=== PATIENT | male | born 1955 | race Caucasian/White ===

== ENCOUNTER 2016-09-21 16:02 | Emergency (ER) | payer OTHER ==
[~2016-09-21] VITALS: Wt 74.0 kg
--- NOTE | 2016-09-21 17:59 | ERD ---
ER Documentation Chief Complaint Date/Time DATE: 09/21/16 TIME: 17:58 Chief Complaint right hand laceration for the past few hours. bleeding controlled HPI This is a 61-year-old male presenting to the emergency room complaining of a a superficial laceration sustained on his right distal palm inferior to the second digit from a tape measure/ ROS All systems reviewed and are negative except as per history of present illness. PMhx/Soc History of Surgery: No Anesthesia Reaction: No Hx Neurological Disorder: No Hx Respiratory Disorders: No Hx Cardiac Disorders: No Hx Psychiatric Problems: No Hx Miscellaneous Medical Probl: Yes (GERD) Hx Alcohol Use: No Hx Substance Use: No Hx Tobacco Use: Yes Smoking Status: Current every day smoker Physical Exam Vitals Vital Signs Date Time Temp Pulse Resp B/P Pulse Ox O2 Delivery O2 Flow Rate FiO2 09/21/16 16:11 98.0 74 20 128/80 98 Physical Exam General: WD/WN, in no apparent distress, non-toxic appearing HENT: NC/AT Eyes: Conjunctiva normal Neck: Supple Pulm: Normal labored breathing CV: Good capillary refill GI: Non-distended, no guarding Back: No masses Ext: No clubbing, cyanosis, or edema Neuro: Moves on all fours, no neuro deficits, sensation intact Skin: 1.2 cm superficial laceration on the distal palm inferior to second digit , patient has full range of motion of the radial/ulnar/median nerve, 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 A second digit. My clinical suspicion for fracture, nerve/ tendon/arterial injury, foreign body is low due to physical examination. In the ED, patient was given TDAP and prepared for wound closure.hemodynamically stable and neurovascularly intact pre and post treatment. Discussed 2 day wound check. Discussed to return to this facility or primary care physician in 7 days for suture removal. Discussed to return to the ER for any signs of infection or if condition worsens. Patient expressed agreement and understanding of the plan. PROCEDURE NOTE: Consent was obtained. Patient was positioned appropriately. Copious amount of normal saline was used for irrigation. Wound was cleansed with Betadine. Approximately []cc of lidocaine with epinephrine was used as a local anesthetic. Patient was sterile draped with wound exposed. Wound was closed with good approximation with 3 x 4-0 sutures. Procedure tolerated without complications. Wound dressed with bacitracin and sterile gauze. Departure Diagnosis: Primary Impression: Hand laceration Encounter type: initial encounter Laterality: right Qualified Code: S61.411A - Hand laceration, right, initial encounter Condition: Stable Patient Instructions: Laceration, Hand Referrals: [facility] Additional Instructions: Follow up in 2 days in your clinic for wound check. Return to this facility if you are not improving as expected. GWEN WU PA-C Sep 21, 2016 17:59
[2016-09-21] MEDS ORDERED: LIDOCAINE 1%/EPI (MDV) 20 ML INJ INJ ONE (18:00)
[2016-09-21] MEDS ORDERED: DIPHTH/TET/ACEL PERTUSS (ADULT) 0.5 ML VIAL IM* ONE (18:00)
[2016-09-21] MEDS ORDERED: BACITRACIN 0.9 GM OINT TOP ONE (19:00)
== END 2016-09-21 19:07 | disposition home or self-care (01) ==
LOC: FTE 16:02
DX: S61.411A Laceration without foreign body of right hand, initial encounter (principal); F17.210 Nicotine dependence, cigarettes, uncomplicated; X58.XXXA Exposure to other specified factors, initial encounter; Y92.9 Unspecified place or not applicable
CPT/HCPCS: 90471; 90715